=== PATIENT | male | born 1970 | race Caucasian/White ===

== ENCOUNTER 2022-12-13 01:20 | Emergency (ER) | payer OTHER ==
[2022-12-13] MEDS ORDERED: Ketorolac 30 MG/ML SDV IVPUSH ONE (01:47)
[2022-12-13 02:06] LABS: CARBON DIOXIDE,CO2 28.7 mmol/L (21.0-32.0); POTASSIUM,K 3.8 mmol/L (3.5-5.1)
== END 2022-12-13 03:36 | disposition home or self-care (01) ==
LOC: MW.ED 01:20
DX: N13.2 Hydronephrosis with renal and ureteral calculous obstruction (principal); Z88.0 Allergy status to penicillin
CPT/HCPCS: 36415; 74176; 80048; 81001; 85025; 96374; 99284; J1885